=== PATIENT | female | born 1940 | race Two or more races ===

== ENCOUNTER 2018-02-08 10:00 | Inpatient (IN) | payer OTHER ==
[~2018-02-08] VITALS: Ht 160 cm; Wt 50.8 kg
[2018-02-08] MEDS ORDERED: [UNRECOGNIZED DRUG - OTHER] (12:07)
[2018-02-08] MEDS ORDERED: SYNTHROID50 MCG (12:07)
[2018-02-08] MEDS ORDERED: ZESTRIL2.5 MG (12:07)
[2018-02-16] MEDS ORDERED: INTEGRA PLUS C1 EACH PO (08:10)
[2018-02-16] MEDS ORDERED: XARELTO10 MG PO (08:11)
[2018-02-16] MEDS ORDERED: OXYC1TAB9 PO (08:11)
== END 2018-02-16 11:22 | DRG 470 ==
LOC: SURG 02-13 05:52 → O/R 02-13 05:52 → SURH 02-13 10:00 → SURG 02-13 15:36
PROVIDERS: Orthopaedic Surgery Sports Medicine
PROC: 0SRD0J9 Replacement of Left Knee Joint with Synthetic Substitute, Cemented, Open Approach (ICD-10-PCS; principal; 2018-02-13 10:30)
DX: M17.12 Unilateral primary osteoarthritis, left knee (principal); I10 Essential (primary) hypertension